=== PATIENT | female | born 1995 | race Two or more races ===

== ENCOUNTER 2024-09-23 23:14 | Emergency (ER) | payer BC, SELFPAY ==
--- NOTE | ~2024-09-23 | CT_ITS ---
CT brain wo con Ordering provider: Mina Barton MD History: 29 years Female with . Head injury positive LOC multi trauma . Comparison: None. Technique: CT of the head without contrast. Radiation reduction technique utilized.The dose-length pr oduct was 605.33 mGy-cm. FINDINGS: BRAIN PARENCHYMA AND CSF SPACES: No midline shift, mass effect or hemorrhage. The brain parenchyma a nd CSF spaces are otherwise normal. VISUALIZED PARANASAL SINUSES: Well aerated. MASTOIDS: Well aerated. BONES: The bones appear intact. SOFT TISSUES: Visualized nasopharynx is normal. Superficial soft tissues are normal. IMPRESSION: No acute intracranial findings. Reviewed, dictated and finalized at location A.
--- NOTE | ~2024-09-23 | XR_ITS ---
XR hip RT 2V w AP pelvis Ordering provider: Mina Barton MD History: . Pain status post fall . Comparison: None. FINDINGS: BONES: No acute fracture or dislocation. HIP JOINT SPACES: Normal. SACROILIAC JOINT SPACES/LUMBAR SPINE: The sacroiliac joint spaces are normal. Mild degenerative pete es of the visualized lower lumbar spine. PUBIC SYMPHYSIS: Normal. SOFT TISSUES: Normal. Radiopaque shadow is projected over the upper thigh area medially. IMPRESSION: No acute osseous abnormality pelvis and right hip. Reviewed, dictated and finalized at location A.
--- NOTE | ~2024-09-23 | XR_ITS ---
XR elbow RT min 3V Ordering provider: Mina Barton MD History: . Pain status post fall . Comparison: None. FINDINGS: BONES: No acute fracture or dislocation. JOINT SPACES: Normal. SOFT TISSUES: Unremarkable. No definite joint effusion. IMPRESSION: No acute osseous abnormality of the right elbow. Reviewed, dictated and finalized at location A.
--- NOTE | ~2024-09-23 | CT_ITS ---
CT cervical spine wo con Ordering provider: Mina Barton MD History: . Neck pain status post fall . Comparison: None. Technique: CT of the cervical spine was performed without contrast. Sagittal and coronal reformatted images were also obtained and reviewed. Automated exposure control and iterative reconstruction melvi hnique were employed. The dose-length product was 306.25 mGy-cm. FINDINGS: VERTEBRAE: No subluxation or acute fracture. The occipital condyles are intact. DISC SPACES: Normal. PARASPINOUS SOFT TISSUES: Normal. IMPRESSION: No acute osseous abnormality cervical spine. Reviewed, dictated and finalized at location A.
--- NOTE | ~2024-09-23 | XR_ITS ---
XR shoulder RT min 2V Ordering provider: Mina Barton MD History: . Pain status post fall . Comparison: None. FINDINGS: BONES: No acute fracture or dislocation. JOINT SPACES: The acromioclavicular joint is normal. The glenohumeral joint is normal. SOFT TISSUES: Normal. IMPRESSION: No acute osseous abnormality right shoulder. \ Reviewed, dictated and finalized at location A.
[2024-09-23 23:15] VITALS: BP 141/93; PULSE 75; RESP 15; TEMP 36.6; O2SAT 100
--- OUTSIDE RECORDS SUMMARY | 2024-09-23 23:16 | XMS_ITS | Clinical Summary ---
Author Organization [facility] Address [address] [place] [address] Care Team Providers Care Ballistics Professor Name Role Phone Unavailable Primary Care Provider Unavailabl e Social History Tobacco Use Types Packs/Day Years Used Date Smoking Tobacco: Never Assessed Comments Unknown Sex and Gender Information Value Date Recorded Sex Assigned at Not on file Legal Sex Female 7:17 PM CDT Gender Identity Not on file Sexual Orientation Not on file Plan of Treatment Upcoming Encounters Date Type Department Care Team (Late st Contact Info) Description 09/28/2024 10:20 AM CDT Office Visit [facility] [place] [address] [place] [address] Lety López DO [address] [place] [address] Health Maintenance Due Date Last Done Comments Cervical Cancer Screening Pa p Smear (Age 21 to 29) Every 3 Years 1997 Cervical Cancer Screening 1997 Annual Physical 02/29/2000 Hepatitis C 2015 DTaP, Tdap and Td Vaccines ( 1 - Tdap) 02/29/2016 Hepatitis B Vaccines (1 of 3 - 19+ 3-dose series) 02/29/2016 COVID-19 Vaccine (2023-2 5 season) 2024 HPV Vaccines Aged Out No longer eligi ble based on patient's age to complete this topic Meningococcal B Vaccine Aged Out No l onger eligible based on patient's age to complete this topic Meningococcal Vaccine Aged Out No jatinder michael eligible based on patient's age to complete this topic Pneumococcal Vaccine: Pediat rics (0 to 5 Years) and At-Risk Patients (6 to 49 Years) Aged Out No longer eligible b ased on patient's age to complete this topic RSV Immunizations Under 20 Months Aged Out No longer eligible based on patient's age to complete this topic Insurance
--- OUTSIDE RECORDS SUMMARY | 2024-09-23 23:16 | XMS_ITS | Clinical Summary ---
Author Organization [facility] Address [address] [place] [address] Care Team Providers Care Stitch Cleaner Name Role Phone Rowena Dsouza Primary Care Provider Allergies Active Allergy Reactions Criticality Noted Date Comments Hepatitis A Virus Vaccine Hives,Shortnes s of breath,Chills High 09/23/2021 Medications melatonin 10 mg capsule Take 10 mg by mouth nightly as needed (insomnia) Active aknaw-5d-zjs-epa -fish oil (Fish OiL) 350-600 mg capsule Take 1 tablet by mouth daily before breakfast Active zinc 50 mg tablet Take 50 mg by mouth daily before breakfast Active cyanocobalamin (Vitamin B-12) 1,000 mcg tabletIndication s:Prevention of Vitamin B12 Deficiency Take 1 tablet (1,000 mcg total) by mouth daily before breakfast Active ashwagandha root extract 500 mg capsule Take 500 mg by mouth daily before breakfast Active UNABLE TO FIND Take 1 each by mouth daily before breakfast Med Name: Anositol Active UNABLE TO FIND Take 1 each by mouth daily before breakfast Med Name: Bioidentical Estrogen Active losartan (COZAAR) 25 mg tabletIndication s:Essential hypertension Take 1 tablet (25 mg total) by mouth daily 90 tablet 3 4 Active meclizine (ANTIVERT) 25 mg tabletIndication s:Vertigo Take 1 tablet (25 mg total) by mouth 3 (three) times a day as needed for dizziness 30 tablet 4 Active LORazepam (ATIVAN) 0.5 mg tabletIndication s:Situational anxiety Take 1 tablet (0.5 mg total) by mouth every 6 (six) hours as needed for anxiety 15 tablet 5 Active Active Problems Problem Noted Date Diagnosed Date Situational anxiety 08/11/2023 Assessment & Plan (08/11/2023 1:20 PM CDT): Start propranolol Continue therapy Uses,risks,se's discussed Essential hypertension 03/30/2022 Assessment & Plan (08/11/2023 1:20 PM CDT): Discussed that losartan is not safe during Would want to let us know if she becomes to change her medication Pelvic and perineal pain 09/24/2021 Overview (09/24/2021): Added automatically from request for surgery [id number] Dysmenorrhea 09/24/2021 Overview (09/24/2021): Added automatically from request for surgery [id number] Endometriosis 08/19/2021 Assessment & Plan (08/11/2023 1:19 PM CDT): Set up with ENVIRONMENTAL PERMITTING SPECIALIST History of nephrolithiasis 02/06/2021 PCOS (polycystic ovarian syndrome) 02/06/2021 Assessment & Plan (08/11/2023 1:19 PM CDT): Set up with ENVIRONMENTAL PERMITTING SPECIALIST Assessment & Plan (02/06/2021 3:08 PM CDT): Sees LICENSED THERAPIST Attention deficit hyperactiv ity disorder (ADHD), combined type 02/06/2021 Well adult exam 02/06/2021 Assessment & Plan (08/11/2023 1:19 PM CDT): -Check in 1 year. Recommend Pap smears at least every 3 years starting at age 21, unless otherwise indicated. recommend flu shot yearly. Recommend heart healthy diet and 30 minutes of exercise daily. Recommend mammogram yearly starting at 40 y/o. Colon cancer screening starting at 50. Assessment & Plan (02/06/2021 3:07 PM CDT): -Check in 1 year. Recommend Pap smears at least every 3 years starting at age 21, unless otherwise indicated. recommend flu shot yearly. Recommend heart healthy diet and 30 minutes of exercise daily. Recommend mammogram yearly starting at 40 y/o. Colon cancer screening starting at 50. utd on pap Encounters Date Type Department Care Team Description 09/11/2024 Telephone [facility] Family Medicine [address] [place] [address] Rowena Dsouza PA from Last 3 Months Immunizations Immunization Administration Dates Next Due Influenza, Unspecified 03/22/2024(Deferr ed: Patient Refused),08/11/2023(Deferred: Patient Refused),07/22/2022(Deferred: Patient decision) Pneumococcal Conjugate Pcv20 07/27/2023(Deferred : Patient decision) Surgical History Surgery Date Site/Laterality Comments MANDIBLE FRACTURE SURGERY 05/24/2006 - 05/23/2007 CYSTOSCOPY 05/24/2013 - 05/23/2014 KIDNEY STONE SURGERY s/p multiple LAPAROSCOPY Medical History Medical History Date Comments Kidney stones PCOS (polycystic ovarian syndrome) ADHD (attention deficit hyperactivity disorder) Endometriosis Family History Medical History Relation Name Comments ADD / ADHD Father Autoimmune disease Father Hypertension Father Hypertension Mother Anesthesia problems Neg Hx Relation Name Status Comments Father Alive Mother Alive Social History Tobacco Use Types Packs/Day Years Used Date Smoking Tobacco: Some Days Cigarettes E-cigarettes Smokeless Tobacco: Never Tobacco Cessation:Ready to Q uit: Not Asked; Counseling Given: Not Answered Comments:very rare Alcohol Use Standard Drinks/Week Comments Yes 0 (1 standard drink = 0.6 oz pur e alcohol) AUDIT-C Answer Date Recorded Q1: How often do you have a drink containing alc ohol? 2-4 times a month 10/06/2023 Q2: How many drinks containi ng alcohol do you have on a typical day when you are drinking? 1 or 2 10/06/2023 Q3: How often do you have si x or more drinks on one occasion? 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 Gender Identity Not on file Sexual Orientation Not on file Obstetrics History Para Term AB IAB SAB Ectopic Multiple Livin g Live Births 0 0 0 0 0 0 0 0 0 0 0 Last Filed Vital Signs Vital Sign Reading Time Taken Comments Blood Pressure 126/84 12/28/2023 4:20 PM CDT Pulse 80 12/28/2023 4:20 PM CDT Temperature 36.7 C (98.1 F) 12/28/2023 4:20 PM CDT Respiratory Rate 16 12/28/2023 4:20 PM CDT Oxygen Saturation 99% 12/28/2023 4:20 PM CDT Inhaled Oxygen Concentration - - Weight 71.7 kg (158 lb) 12/28/2023 4:20 PM CDT Height 161.3 cm (5' 3.5 ) 12/28/2023 4:20 PM CDT Body Mass Index 27.55 12/28/2023 4:20 PM CDT Plan of Treatment Health Maintenance Due Date Last Done Comments Hepatitis C Screening 1997 DTaP/Tdap/Td Vaccine (1 - Tdap) 02/29/2008 Varicella Vaccines (1 of 2 - 13+ 2-dose series) 2010 Hepatitis B Screening 2015 Pneumococcal vaccine <65 (1 of 2 - PCV) 02/29/2016 Cervical Cancer Screening 03/02/2024 10/06/2023 Depression Screening 10/05/2024 10/06/2023, 07/27/2023, 01/14/2022, Additional history exists Regular Well Visit/Exam 18-64 10/05/2024 10/06/2023, 08/11/2023, 02/06/2021 Influenza Vaccine (Season Ended) 2025 HPV Vaccines Aged Out No longer eligi ble based on patient's age to complete this topic Procedures Procedure Name Priority Date/Time Associated Diagnosis Comments PAP, REFLEX HPV Routine 10/06/2023 11:10 AM CDT Encounter for gynecological examination with Papanicolaou smear of cervix from Last 3 Months or Most Recently Relevant to Health Maintenance Results * Pap, reflex HPV (10/06/2023 11:10 AM CDT) CLINICAL INFORMATION: Marii MarquezDesiree Young Comment:None given LMP Marii MarquezDesiree Young Comment:[id number] Previous Pap Marii MarquezDesiree Young Comment:None given Prev. Bx Marii Young Comment:None given SOURCE: Marii Young Comment:Cervix, Endocervix Pap, specimen adequacy Marii JimmyDesiree Young Comment: Satisfactory for evaluation. Endocervical/transformation zone component present. HPV interp Marii JimmyDesiree Young Comment: Cytology Results: Negative for intraepithelial lesion or malignancy. COMMENTS Marii JimmyDesiree Young Comment: This Pap test has been evaluated with computer assisted technology. Tugboat Dispatcher [facility] st Deisi Young Comment: BES, CT(ASCP) CT screening location: [place] [address] [address] [place] [address] Comment Marii Young Comment: EXPLANATORY NOTE: The Pap is a screening test for cervical cancer. It is not a diagnostic test and is subject to false negative and false positive results. It is most reliable when a satisfactory sample, regularly obtained, is submitted with relevant clinical findings and history, and when the Pap result is evaluated along with historic and current clinical information. Thin prep 10/06/2023 11:1 0 AM CDT 10/07/2023 4:11 AM CDT us Lety Louie NP LAB CYTOLOGY ORDERABLES Final Re sult [facility] [place] [address] [address] [place] [phone] from Last 3 Months or Most Recently Relevant to Health Maintenance Insurance [facility] CHOICE PLUS [facility] PPO [employer] Address: [address] [place] [address] Care Teams Stitch Cleaner Relationship Specialty Start Date End Date Rowena Dsouza PA [address] [place] [address] [address] PCP - General Family Medicine 02/06/21
--- OUTSIDE RECORDS SUMMARY | 2024-09-23 23:16 | XMS_ITS | Clinical Summary ---
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 Gender Identity Not on file Sexual Orientation Not on file Plan of Treatment Health Maintenance Due Date Last Done Comments Hepatitis C Virus (HCV) Screening 1997 TdaP Immunization 1997 Human Papillomavirus (HPV) Immunization (1 - 3-dose series) 02/29/2012 Hepatitis B Immunization (1 of 3 - 19+ 3-dose series) 02/29/2016 Pap Smear 2018 Influenza Immunization (#1) 2024 SARS-COV-2 Immunization ( season) 2024 Respiratory Syncytial Virus (RSV) Immunization (Adult) (1 - 1-dose 75+ series) 02/29/2072 Meningococcal Immunization (ACWY) Aged Out No longer eligible based on patient's age to complete this topic Pneumococcal Immunization Combined Aged Out No longer eligible based on patient's age to complete this topic Rotavirus Immunization Aged Out No lo nger eligible based on patient's age to complete this topic
--- OUTSIDE RECORDS SUMMARY | 2024-09-23 23:16 | XMS_ITS | Referral Summary ---
Author Organization [facility] Address [address] [place] [address] Care Team Providers Care Windshield Installer Name Role Phone Rowena Dsouza Primary Care Provider Encounters Date Type Department Care Team Description 09/11/2024 Telephone [facility] Family Medicine [address] [place] [address] Rowena Dsouza PA from Last 3 Months Allergies Active Allergy Reactions Criticality Noted Date Comments Hepatitis A Virus Vaccine Hives,Shortnes s of breath,Chills High 09/23/2021 Medications melatonin 10 mg capsule Take 10 mg by mouth nightly as needed (insomnia) Active fgfdz-2v-xyv-epa -fish oil (Fish OiL) 350-600 mg capsule [...] (09/24/2021): Added automatically from request for surgery [id number] Dysmenorrhea 09/24/2021 Overview (09/24/2021): Added automatically from request for surgery [id number] Endometriosis 08/19/2021 Assessment & Plan (08/11/2023 1:19 PM CDT): Set up with COMMUNITY NUTRITION EDUCATOR History of nephrolithiasis 02/06/2021 PCOS (polycystic ovarian syndrome) 02/06/2021 Assessment & Plan (08/11/2023 1:19 PM CDT): Set up with COMMUNITY NUTRITION EDUCATOR Assessment & Plan (02/06/2021 3:08 PM CDT): 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 Gender Identity Not on file Sexual Orientation Not on file Last Filed Vital Signs Vital Sign Reading [...] 12/28/2023 4:20 PM CDT Plan of Treatment Not on file Procedures Procedure Name Priority Date/Time Associated Diagnosis Comments PAP, REFLEX HPV Routine 10/06/2023 11:10 AM CDT Encounter for gynecological examination with Papanicolaou smear of cervix from Last 3 Months or Most Recently Relevant to Health Maintenance Results * Pap, reflex HPV (10/06/2023 11:10 AM CDT) CLINICAL INFORMATION: Marii Young Comment:None given LMP Marii Young Comment:[id number] Previous Pap Marii Young Comment:None given Prev. Bx Marii Young Comment:None given SOURCE: Marii Young Comment:Cervix, Endocervix Pap, specimen adequacy Marii Young Comment: Satisfactory for evaluation. Endocervical/transformation zone component present. HPV interp Marii Young Comment: Cytology Results: Negative for intraepithelial lesion or malignancy. COMMENTS Marii Young Comment: This Pap test has been evaluated with computer assisted technology. Small Arms Artillery Repairer Jose Carr Comment: BES, CT(ASCP) CT screening location: [place] [address] [place] [address] Comment Marii Young Comment: EXPLANATORY NOTE: The [...] NP LAB CYTOLOGY ORDERABLES Final [facility] [address] [place] [address] from Last 3 Months or Most Recently Relevant to Health Maintenance Insurance [facility] CHOICE PLUS [facility] PPO [employer] [facility] Address: [facility] [id number] [place] [phone] Care Teams Windshield Installer Relationship Specialty Start Date End Date Rowena Dsouza PA [address] [facility] [address] [place] [address] PCP - General Family Medicine 02/06/21
--- NOTE | 2024-09-24 02:02 | ED_ITS ---
HPI - General Adult General Chief complaint: Head Injury Stated complaint: head injury, MORALES n/v Time Seen by Provider: 09/24/24 01:02 History of Present Illness HPI narrative: This patient does have multiple presents emergency department chief complaint of head injury. Patient reports that she had positive loss of consciousness had some slurred speech neck pain and dizziness after the fall. Patient states that she tripped over her dog and reports being on her right side of her body Related Data Home Medications ?Medication ?Instructions ?Recorded ?Confirmed ?Last Taken ?Type acetaminophen 500 mg tablet 500 mg PO Q6H PRN 11/21/19 10/09/20 Unknown History (Tylenol Extra Strength) diphenhydramine HCl 50 mg capsule 50 mg PO QID PRN 11/21/19 10/09/20 Unknown History melatonin 5 mg capsule mg PO 11/21/19 10/09/20 Unknown History Allergies Allergy/AdvReac Type Severity Reaction Status Date / Time hepatitis A virus vaccine Allergy Unknown unknown Verified 09/23/24 23:15 Review of Systems Review of Systems: A 10 system review of systems was completed on the patient and is negative ex cept for what is stated in the HPI. Nursing and ancillary documentation was reviewed. [facility] Past Medical History Medical History History of kidney stones History of nephrolithotomy with removal of calculi History of Chlamydia contact, treated Maxillary fracture Hypothyroidism Kidney stones Anxiety Psoriasis Surgical History Surgical History H/O laparoscopy Family History Family History Father Diabetes mellitus Acute myocardial infarction Hypertension Social History Social History Smoking status: Light tobacco smoker Tobacco type: cigarettes Additional smoking assessment comments: 2 cigarettes per month Alcohol intake: current Drinks per week: 2 Substance use: current Substance use type: marijuana Gender identity (if verbalized by the patient): Female Exam Narrative: GENERAL: Well-appearing, well-nourished, and in no acute distress. HEAD: Normocephalic, atraumatic. EYES: PERRLA and EOMI. ENT: Nares clear, no rhinorrhea or epistaxis. Mucous membranes moist. NECK: Supple. CHEST: Clear to auscultation. No respiratory distress. HEART: Regular rate and rhythm. No murmur heard. Normal peripheral pulses. ABDOMEN: Soft, nontender, nondistended, normal active bowel sounds. EXTREMITIES: Normal range of motion. No edema. SKIN: Warm, dry, no rash. NEURO: No focal deficits. Alert and oriented x3. PSYCH: Normal mood and affect. Course Vital Signs Vital signs: Vital Signs Temperature 36.6 C 09/23/24 23:15 Pulse Rate 75 09/23/24 23:15 Respiratory Rate 15 09/23/24 23:15 Blood Pressure 141/93 H 09/23/24 23:15 Pulse Oximetry 100 09/23/24 23:15 Oxygen Delivery Room Air 09/23/24 23:15 Temperature 36.6 C 09/23/24 23:15 Pulse Rate 75 09/23/24 23:15 Respiratory Rate 15 09/23/24 23:15 Blood Pressure 141/93 H 09/23/24 23:15 Pulse Oximetry 100 09/23/24 23:15 Oxygen Delivery Room Air 09/23/24 23:15 Medical Decision Making [facility] Narrative Medical decision making narrative: Differential diagnosis includes intracranial hemorrhage, cervical spine fracture, fracture CT head showed no acute abnormality CT C-spine showed no evidence of fracture Plain film x-rays of the shoulder and hip and elbow showed no evidence of fracture Vital Signs Vital Signs: Vital Signs Temperature 36.6 C 09/23/24 23:15 Pulse Rate 75 09/23/24 23:15 Respiratory Rate 15 09/23/24 23:15 Blood Pressure 141/93 H 09/23/24 23:15 Pulse Oximetry 100 09/23/24 23:15 Oxygen Delivery Room Air 09/23/24 23:15 Temperature 36.6 C 09/23/24 23:15 Pulse Rate 75 09/23/24 23:15 Respiratory Rate 15 09/23/24 23:15 Blood Pressure 141/93 H 09/23/24 23:15 Pulse Oximetry 100 09/23/24 23:15 Oxygen Delivery Room Air 09/23/24 23:15 Discharge Plan Discharge Clinical Impression: Head injury, Cervical strain, Contusion of right shoulder, Contusion of hip, right Patient Disposition: Home Condition: Stable Instructions: Antibiotic Form, Concussion (ED), Head Injury (ED), Contusion in Adults (ED) Patient Language: Salvadorean Prescriptions: New ondansetron 4 mg tablet,disintegrating 4 mg PO Q8H PRN (Reason: nausea and vomiting) Qty: 10 0RF No Action melatonin 5 mg capsule PO acetaminophen [Tylenol Extra Strength] 500 mg tablet 500 mg PO Q6H PRN diphenhydramine HCl 50 mg capsule 50 mg PO QID PRN tranexamic acid [Lysteda] 650 mg tablet 1,300 mg PO TID Qty: 30 0RF Follow-up/Referrals: Nitesh Rodriguez MD [Primary Care Provider] - Stand Alone Forms: Work/School Release IP Time of Disposition: 02:12
--- OUTSIDE RECORDS SUMMARY | 2024-09-24 02:18 | XMS_ITS | Clinical Summary ---
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
--- OUTSIDE RECORDS SUMMARY | 2024-09-24 02:18 | XMS_ITS | Referral Summary ---
Author Organization [facility] Address [address] [place] [address] Care Team Providers Care Buffing And Polishing Wheel Repairer Name Role Phone Rowena Dsouza Primary Care Provider Encounters Date Type Department Care Team Description 09/11/2024 Telephone [facility] Family Medicine [address] [place] [address] Rowena Dsouza PA from Last 3 Months Allergies Active Allergy Reactions Criticality Noted Date Comments Hepatitis A Virus Vaccine Hives,Shortnes s of breath,Chills High 09/23/2021 Medications melatonin 10 mg capsule Take 10 mg by mouth nightly as needed (insomnia) Active perbi-3o-jny-epa -fish oil (Fish OiL) 350-600 mg capsule [...] (09/24/2021): Added automatically from request for surgery [id number] Dysmenorrhea 09/24/2021 Overview (09/24/2021): Added automatically from request for surgery [id number] Endometriosis 08/19/2021 Assessment & Plan (08/11/2023 1:19 PM CDT): Set up with STRING CUTTER History of nephrolithiasis 02/06/2021 PCOS (polycystic ovarian syndrome) 02/06/2021 Assessment & Plan (08/11/2023 1:19 PM CDT): Set up with STRING CUTTER Assessment & Plan (02/06/2021 3:08 PM CDT): Sees TELEPHONE QUOTATION CLERK Attention deficit hyperactiv ity disorder (ADHD), combined [...] on file 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 Bx Marii Young Comment:None given SOURCE: Marii Young Comment:Cervix, Endocervix Pap, specimen adequacy Marii Young Comment: Satisfactory for evaluation. Endocervical/transformation zone component present. HPV interp Marii Young Comment: Cytology Results: Negative for intraepithelial lesion or malignancy. COMMENTS Marii Young Comment: This Pap test has been evaluated with computer assisted technology. Aircraft Structural Repairer Jose Carr Comment: BES, CT(ASCP) CT screening location: [place] [address] [place] [address] Comment Marii Young Comment: EXPLANATORY NOTE: The [...] NP LAB CYTOLOGY ORDERABLES [facility] [address] [place] [address] from Last 3 Months or Most Recently Relevant to Health Maintenance Insurance [facility] CHOICE PLUS [facility] PPO [employer] Address[facility] [id number] [place] [id number] Care Teams Buffing And Polishing Wheel Repairer Relationship Specialty Start Date End Date Rowena Dsouza PA [address] [facility] [address] [place] [address] PCP - General Family Medicine 02/06/21
--- OUTSIDE RECORDS SUMMARY | 2024-09-24 02:18 | XMS_ITS | Clinical Summary ---
Author Organization [facility] Address [address] [place] [id number] Care Team Providers Care Change Management Facilitator Name Role Phone Unavailable Primary Care Provider [...] Description 09/28/2024 10:20 AM CDT Office Visit [facility] [place] [address] [place] [address] Lety López DO [address] [place] [address] Health Maintenance Due Date Last Done Comments [...]
--- OUTSIDE RECORDS SUMMARY | 2024-09-24 02:18 | XMS_ITS | Clinical Summary ---
Author Organization [facility] Address [address] [place] [address] Care Team Providers Care Plant Guard Name Role Phone Rowena Dsouza Primary Care Provider Allergies Active Allergy Reactions Criticality Noted Date Comments Hepatitis A Virus Vaccine Hives,Shortnes s of breath,Chills High 09/23/2021 Medications melatonin 10 mg capsule Take 10 mg by mouth nightly as needed (insomnia) Active ntggv-3h-btc-epa -fish oil (Fish OiL) 350-600 mg capsule [...] (09/24/2021): Added automatically from request for surgery [id number] Dysmenorrhea 09/24/2021 Overview (09/24/2021): Added automatically from request for surgery [id number] Endometriosis 08/19/2021 Assessment & Plan (08/11/2023 1:19 PM CDT): 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 & CEO History of nephrolithiasis 02/06/2021 PCOS (polycystic ovarian syndrome) 02/06/2021 Assessment & Plan (08/11/2023 1:19 PM CDT): 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 & CEO Assessment & Plan (02/06/2021 3:08 PM CDT): Sees HOSPITAL UNIT COORDINATOR Attention deficit hyperactiv ity disorder (ADHD), combined [...] Type Department Care Team Description 09/11/2024 Telephone [facility] Family Medicine [address] [place] [address] Rowena Dsouza PA from Last [...] on file 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 Bx Marii Young Comment:None given SOURCE: Marii Young Comment:Cervix, Endocervix Pap, specimen adequacy Marii JimmyDesiree Young Comment: Satisfactory for evaluation. Endocervical/transformation zone component present. HPV interp Marii JimmyDesiree Young Comment: Cytology Results: Negative for intraepithelial lesion or malignancy. COMMENTS Marii JimmyDesiree Young Comment: This Pap test has been evaluated with computer assisted technology. Car Sales Associate [facility] st Deisi Young Comment: BES, CT(ASCP) CT screening location: [place] [address] [address] [place] [address] Comment Marii Young Comment: EXPLANATORY NOTE: The [...] NP LAB CYTOLOGY ORDERABLES Final Re sult [facility] [place] [address] [address] [place] [phone] from Last 3 Months or Most Recently Relevant to Health Maintenance Insurance [facility] CHOICE PLUS [facility] HEALTHCARE PPO [facility] HMO/PPO Address: [address] [place] [address] [employer] [facility] [employer] Address: [address] [place] [address] Care Teams Plant Guard Relationship Specialty Start Date End Date Rowena Dsouza PA [address] [place] [address] [address] PCP - General Family Medicine 02/06/21
[2024-09-24 02:25] VITALS: BP 159/96; PULSE 83; RESP 16; O2SAT 99
== END 2024-09-24 02:31 | disposition home or self-care (01) ==
PROVIDERS: Emergency Provider Emergency Medicine
DX: S16.1XXA Strain of muscle, fascia and tendon at neck level, initial encounter (principal); S40.011A Contusion of right shoulder, initial encounter; S70.01XA Contusion of right hip, initial encounter; W01.0XXA Fall on same level from slipping, tripping and stumbling without subsequent striking against object, initial encounter; E03.9 Hypothyroidism, unspecified
CPT/HCPCS: 70450; 72125; 73030; 73080; 73502; 99284